=== PATIENT | male | born 1970 | race American Indian/Alaskan Native ===

== ENCOUNTER 2017-01-05 21:54 | Emergency (ER) | payer SELFPAY ==
[2017-01-05] MEDS ORDERED: TESSALON PERLES PO ONE (22:15)
[2017-01-05 22:59] LABS: Calcium 8.7 mg/dL (8.4-10.2); Chloride 100.8 mmol/L (98-107); Potassium 4.2 mmol/L (3.6-5.0)
[2017-01-05 23:26] LABS: Hematocrit 42.1 % (35.5-45.6); Mean Corpuscular HGB Conc 33 % (32-34); Mean Corpuscular Hemoglobin 29 pg (28-32); Mean Corpuscular Volume 87 fl (84-94); Platelet Count 211 K/mm3 (140-440); Red Blood Count 4.86 M/mm3 (3.65-5.03); Red Cell Distribution Width 14.1 % (13.2-15.2); White Blood Count 6.8 K/mm3 (4.5-11.0)
[2017-01-06] MEDS ORDERED: PROVENTIL IH ONE (02:17)
[2017-01-06] MEDS ORDERED: ATROVENT IH ONE (02:17)
[2017-01-06] MEDS ORDERED: ROBITUSSIN DM PO ONE (02:18)
--- NOTE | 2017-01-06 02:24 | Emergency Department Report ---
HPI - General Chief Complaint: Upper Respiratory Infection Time Seen by Provider: 01/06/17 01:55 - HPI HPI: Room 4 The patient is a 46-year-old male presenting with a chief complaint cough and congestion. Patient states for the past 2 days his cough that has been originally nonproductive. Patient states he took Mucinex a produces small amount of yellow sputum at the time. Patient admits to sinus drainage and rhinorrhea. Patient denies nausea or vomiting. The patient states when he takes a deep breath he feels a "tickle" in his chest that makes him want to cough. Patient is uncertain if he had a fever Location: [see above] Duration: 2 days Quality: Congestion Severity: Moderate Modifying factors: [see above] Context: [see above] Mode of transportation: Unknown ED Past Medical Hx - Past Medical History Hx Hypertension: Yes Hx Congestive Heart Failure: No Hx Diabetes: No Hx Asthma: No Hx COPD: No Additional medical history: reflux, sleep apnea and morbid obesity - Surgical History Past Surgical History?: No - Family History Family history: no significant - Social History Smoking Status: Never Smoker Substance Use Type: None - Medications Home Medications: Home Medications Medication Instructions Recorded Confirmed Last Taken Type HYDROcodone/APAP 5-325 [Freer 1 each PO Q6H PRN #20 tablet 09/24/14 Unknown Rx 5-325 mg TAB] Hydrochlorothiazide 25 mg PO DAILY #30 tablet 09/24/14 Unknown Rx mg Trisilicate/Alh/Nahco3/Aa 1 each PO Q4H PRN #30 tab.chew 09/24/14 Unknown Rx [Gaviscon 80-14.2 mg Tab Chew] Aspirin [Aspirin TAB] 325 mg PO QDAY #30 tablet 09/25/14 Unknown Rx Ibuprofen [Motrin] 800 mg PO Q8H PRN #20 tablet 11/04/14 Unknown Rx Hydrochlorothiazide [HCTZ] 25 mg PO QDAY #30 tablet 06/05/15 Unknown Rx Ibuprofen [Motrin 800 MG tab] 800 mg PO Q8HR PRN #30 tablet 06/05/15 Unknown Rx traMADol [Ultram 50 MG tab] 50 mg PO Q6HR PRN #30 tablet 06/05/15 Unknown Rx ALBUTEROL Inhaler [ProAir HFA 2 puff IH QID PRN #1 inhalation 12/04/16 Unknown Rx Inhaler] Azithromycin [Zithromax Z-NESHA] 250 mg PO DAILY #6 tab 12/04/16 Unknown Rx Benzonatate [Tessalon Perles] 100 mg PO Q8HR PRN #20 capsule 12/04/16 Unknown Rx Fluticasone [Flonase] 1 spray NS QDAY #1 bottle 12/04/16 Unknown Rx ALBUTEROL Inhaler [Proair] 2 puff IH QID PRN #1 inhalation 01/06/17 Unknown Rx Ondansetron [Zofran TAB] 8 mg PO Q8HR PRN #20 tablet 01/06/17 Unknown Rx Oseltamivir [Tamiflu] 75 mg PO BID #10 cap 01/06/17 Unknown Rx guaiFENesin/CODEINE [Robitussin AC] 5 ml PO Q6H PRN #100 ml 01/06/17 Unknown Rx ED Review of Systems ROS: Stated complaint: CP/BACK PAIN,SHOULDER PAIN,COUGH Other details as noted in HPI Comment: All other systems reviewed and negative Constitutional: denies: chills, fever Eyes: denies: eye pain, eye discharge, vision change ENT: congestion Respiratory: cough, shortness of breath Cardiovascular: denies: chest pain, palpitations Endocrine: no symptoms reported Gastrointestinal: denies: abdominal pain, nausea, diarrhea Genitourinary: denies: urgency, dysuria Musculoskeletal: myalgia Skin: denies: rash, lesions Neurological: denies: headache, weakness, paresthesias Psychiatric: denies: anxiety, depression Hematological/Lymphatic: denies: easy bleeding, easy bruising Physical Exam - Physical Exam Vital Signs: Vital Signs 01/05/17 01/06/17 01/06/17 22:07 01:36 01:40 Temperature 99.8 F H Pulse Rate 102 H Respiratory 28 H Rate Blood Pressure 159/88 Blood Pressure [Left] O2 Sat by Pulse 94 97 94 Oximetry 01/06/17 01/06/17 01/06/17 01:47 01:49 01:50 Temperature 100.3 F H Pulse Rate 71 Respiratory 14 14 Rate Blood Pressure 125/74 Blood Pressure 142/89 [Left] O2 Sat by Pulse 100 98 95 Oximetry 01/06/17 01/06/17 02:00 02:11 Temperature 100.3 F H Pulse Rate 95 H 92 H Respiratory 25 H 14 Rate Blood Pressure 124/64 Blood Pressure 125/68 [Left] O2 Sat by Pulse 97 96 Oximetry Physical Exam: GENERAL: The patient is well-developed well-nourished male lying on stretcher exhibiting frequent cough but not appearing to be in acute distress HEENT: Normocephalic. Atraumatic. Extraocular motions are intact. Patient has moist mucous membranes. Rhinorrhea NECK: Supple. No meningitic signs are noted. Trachea midline CHEST/LUNGS: No wheezing auscultated. There is no respiratory distress noted. Frequent coughing HEART/CARDIOVASCULAR: Regular. There is no tachycardia. There is no gallop rub or murmur. ABDOMEN: Abdomen is soft, nontender. Patient has normal bowel sounds. There is no abdominal distention. SKIN: There is no rash. There is no edema. There is no diaphoresis. NEURO: The patient is awake, alert, and oriented. The patient is cooperative. The patient has normal speech MUSCULOSKELETAL:There is no evidence of acute injury. ED Course Vital Signs 01/05/17 01/06/17 01/06/17 22:07 01:36 01:40 Temperature 99.8 F H Pulse Rate 102 H Respiratory 28 H Rate Blood Pressure 159/88 Blood Pressure [Left] O2 Sat by Pulse 94 97 94 Oximetry 01/06/17 01/06/17 01/06/17 01:47 01:49 01:50 Temperature 100.3 F H Pulse Rate 71 Respiratory 14 14 Rate Blood Pressure 125/74 Blood Pressure 142/89 [Left] O2 Sat by Pulse 100 98 95 Oximetry 01/06/17 01/06/17 02:00 02:11 Temperature 100.3 F H Pulse Rate 95 H 92 H Respiratory 25 H 14 Rate Blood Pressure 124/64 Blood Pressure 125/68 [Left] O2 Sat by Pulse 97 96 Oximetry ED Medical Decision Making - Lab Data Result diagrams: 01/05/17 22:29 01/05/17 22:29 Laboratory Tests 01/05/17 01/05/17 01/05/17 22:29 22:29 22:29 WBC 6.8 RBC 4.86 Hgb 14.0 Hct 42.1 MCV 87 MCH 29 MCHC 33 RDW 14.1 Plt Count 211 Sodium 139 Potassium 4.2 Chloride 100.8 Carbon Dioxide 26 Anion Gap 16 BUN 16 Creatinine 1.6 H Estimated GFR 57 BUN/Creatinine Ratio 10.00 Glucose 106 H Calcium 8.7 Troponin T < 0.010 Influenza B positive 11/04/2014 creatinine 1.6 - EKG Data -: EKG Interpreted by Me EKG shows normal: sinus rhythm Rate: tachycardia (106 bpm) - EKG Data When compared to previous EKG there are: no significant change Interpretation: unchanged when compared t (12/04/2016) - Radiology Data Radiology results: image reviewed (chest x-ray) interpreted by me: Chest x-ray-no focal infiltrates, no pneumothorax - Differential Diagnosis pneumonia, influenza, bronchitis, URI Critical care attestation.: If time is entered above; I have spent that time in minutes in the direct care of this critically ill patient, excluding procedure time. ED Disposition Clinical Impression: Influenza B, Cough Disposition: DISCHARGED TO HOME OR SELFCARE Is pt being admited?: No Does the pt Need Aspirin: No Condition: Stable Instructions: Influenza (ED) Additional Instructions: Return to the emergency department immediately should you develop worsening symptoms, fever, inability to tolerate food or liquid or any other concerns. Prescriptions: ALBUTEROL Inhaler [Proair] 2 puff IH QID PRN #1 inhalation PRN Reason: Shortness Of Breath guaiFENesin/CODEINE [Robitussin AC] 5 ml PO Q6H PRN #100 ml PRN Reason: Cough Ondansetron [Zofran TAB] 8 mg PO Q8HR PRN #20 tablet PRN Reason: Nausea Oseltamivir [Tamiflu] 75 mg PO BID #10 cap Referrals: PRIMARY CARE, [Primary Care Provider] - 3-5 Days Time of Disposition: 02:32
[2017-01-06 03:25] VITALS: BP 144/85
--- NOTE | 2017-01-06 08:28 | XRay Report ---
CHEST 2 VIEWS INDICATION: Productive cough, fever, chest pain. COMPARISON: 12/04/2016. FINDINGS: Frontal and lateral chest radiographs, 3 images, again demonstrate limited inspiration with normal cardiomediastinal silhouette and grossly clear lungs. Left hemidiaphragm again slightly elevated. Mild lower thoracic spine degenerative spurring. CONCLUSION: Hypoinflation without definite acute disease, as described. Please correlate. Thank you for the opportunity to participate in this patient's care.
== END 2017-01-06 03:40 | disposition home or self-care (01) ==
LOC: ED 21:54
DX: J11.1 Influenza due to unidentified influenza virus with other respiratory manifestations (principal); I10 Essential (primary) hypertension
CPT/HCPCS: 36415; 71020; 80048; 84484; 85027; 87400; 93005; 93010; 94640; 99284